=== PATIENT | female | born 1945 | race Caucasian/White ===

== ENCOUNTER 2021-11-03 03:17 | Inpatient (IN) | payer MEDICARE ==
[2021-11-08 03:38] VITALS: BMI 24.7
[2021-11-08] MEDS ORDERED: Guaifenesin DM 100-10/5 ML UDCUP PO PRN (04:03)
[2021-11-08] MEDS ORDERED: Senokot S 8.6-50 MG TAB PO PRN (04:05)
[2021-11-08] MEDS: Dextrose 5%-Lactated Ringers 1,000 ML IV SCH ×3 (07:17→12:50)
[2021-11-08] MEDS: Folic Acid 1 MG TAB PO SCH (10:33)
[2021-11-08] MEDS: Megestrol Acetate 40 MG TAB PO SCH (10:33)
[2021-11-08] MEDS: Aspirin 81 mg Enteric Coated Tablet PO SCH (10:33)
[2021-11-08] MEDS: Cepastat Lozenges 1 LOZ PO SCH ×3 (10:33→17:59)
[2021-11-08] MEDS: Lisinopril 5 MG TAB PO SCH (10:33)
[2021-11-08] MEDS: Metoclopramide 10 MG/10 ML UDCUP PO SCH ×4 (10:33→21:56)
[2021-11-08] MEDS: Enoxaparin Sodium 40 MG/0.4 ML SYRINGE SC SCH (10:34)
[2021-11-08] MEDS: Escitalopram Oxalate 10 mg Tablet PO SCH (10:34)
[2021-11-08] MEDS: Atenolol 25 MG TAB PO SCH (10:34)
[2021-11-08] MEDS: Pantoprazole 40 MG VIAL IVP SCH ×2 (10:34→21:55)
[2021-11-08] MEDS: Atorvastatin Calcium 20 MG TAB PO SCH (21:56)
[2021-11-08] MEDS: Temazepam 15 MG CAP PO SCH (21:56)
[2021-11-09] MEDS: Dextrose 5%-Lactated Ringers 1,000 ML IV SCH (00:42)
[2021-11-09 04:14] LABS: #Monocytes 0.6 10x3/uL (0.0-1.1); #Neutrophils 5.3 10x3/uL (1.5-8.4); %Basophils 0.3 % (0.0-2.0); %Eosinophils 0.6 % (0.0-6.0); %Lymphocytes 15.3 % (18.0-47.0); %Monocytes 8.5 % (0.0-10.0); %Neutrophils 74.9 % (40.0-75.0); Hemoglobin 12.8 g/dL (12.0-15.5); Mean Corpuscular Hemoglobin 28.9 pg (27.0-33.0); Mean Corpuscular Volume 85.1 fl (81.6-98.3); Mean Platelet Volume 10.6 fl (7.4-10.4); Platelet Count 145 10x3/uL (150-450); RBC Distribution Width 14.8 % (11.5-14.5); Red Blood Cell (RBC) Count 4.43 10x6/uL (3.90-5.03); White Blood Cell (WBC) Count 7.1 10x3/uL (3.5-10.5)
[2021-11-09 04:45] LABS: Anion Gap 14 mmol/L (10-20); BUN (Urea Nitrogen) 7 mg/dL (9.8-20.1); Calc. Creatinine Clearance 55 mL/min (70-130); Calcium 8.2 mg/dL (7.8-10.44); Carbon Dioxide 23 mmol/L (23-31); Chloride 106 mmol/L (98-107); Glucose 102 mg/dL (83-110); Magnesium 1.7 mg/dL (1.6-2.6); Potassium 3.3 mmol/L (3.5-5.1); Sodium 140 mmol/L (136-145)
[2021-11-09] MEDS ORDERED: Potassium Chloride 20 MEQ TAB PO SCH (07:45)
[2021-11-09] MEDS: Ondansetron PF 4 MG/2 ML Vial IVP PRN ×2 (07:56→16:42)
[2021-11-09] MEDS ORDERED: Pantoprazole 40 MG VIAL ONE (09:26)
[2021-11-09] MEDS: Cepastat Lozenges 1 LOZ PO SCH ×3 (09:34→16:42)
[2021-11-09] MEDS: Aspirin 81 mg Enteric Coated Tablet PO SCH (09:34)
[2021-11-09] MEDS: Enoxaparin Sodium 40 MG/0.4 ML SYRINGE SC SCH (09:34)
[2021-11-09] MEDS: Metoclopramide 10 MG/10 ML UDCUP PO SCH ×4 (09:34→20:28)
[2021-11-09] MEDS: Atenolol 25 MG TAB PO SCH (09:34)
[2021-11-09] MEDS: Megestrol Acetate 40 MG TAB PO SCH (09:35)
[2021-11-09] MEDS: Folic Acid 1 MG TAB PO SCH (09:35)
[2021-11-09] MEDS: Pantoprazole 40 MG VIAL IVP SCH ×2 (09:35→20:29)
[2021-11-09] MEDS: Magnesium Oxide 400 MG TAB PO SCH (09:35)
[2021-11-09] MEDS: Lisinopril 5 MG TAB PO SCH (09:35)
[2021-11-09] MEDS: Escitalopram Oxalate 10 mg Tablet PO SCH (09:35)
[2021-11-09] MEDS: Acetaminophen 325 MG TAB PO PRN (18:31)
[2021-11-09] MEDS: Temazepam 15 MG CAP PO SCH (20:28)
[2021-11-09] MEDS: Atorvastatin Calcium 20 MG TAB PO SCH (20:28)
[2021-11-10 05:28] LABS: Anion Gap 10 mmol/L (10-20); BUN (Urea Nitrogen) 9 mg/dL (9.8-20.1); Calc. Creatinine Clearance 55 mL/min (70-130); Calcium 7.9 mg/dL (7.8-10.44); Carbon Dioxide 26 mmol/L (23-31); Chloride 106 mmol/L (98-107); Glucose 91 mg/dL (83-110); Magnesium 1.6 mg/dL (1.6-2.6); Potassium 3.2 mmol/L (3.5-5.1); Sodium 139 mmol/L (136-145)
[2021-11-10] MEDS: Enoxaparin Sodium 40 MG/0.4 ML SYRINGE SC SCH (08:30)
[2021-11-10] MEDS: Escitalopram Oxalate 10 mg Tablet PO SCH (08:31)
[2021-11-10] MEDS: Lisinopril 5 MG TAB PO SCH (08:31)
[2021-11-10] MEDS: Folic Acid 1 MG TAB PO SCH (08:32)
[2021-11-10] MEDS: Megestrol Acetate 40 MG TAB PO SCH (08:33)
[2021-11-10] MEDS: Atenolol 25 MG TAB PO SCH (08:34)
[2021-11-10] MEDS: Aspirin 81 mg Enteric Coated Tablet PO SCH (08:34)
[2021-11-10] MEDS: Magnesium Oxide 400 MG TAB PO SCH (08:34)
[2021-11-10] MEDS: Cepastat Lozenges 1 LOZ PO SCH ×3 (08:35→18:57)
[2021-11-10] MEDS: Metoclopramide 10 MG/10 ML UDCUP PO SCH ×4 (08:36→23:34)
[2021-11-10] MEDS: Pantoprazole 40 MG VIAL IVP SCH ×2 (08:37→23:34)
[2021-11-10] MEDS: Dextrose 5%-Lactated Ringers 1,000 ML IV SCH (16:26)
[2021-11-10] MEDS: Atorvastatin Calcium 20 MG TAB PO SCH (23:34)
[2021-11-10] MEDS: Ondansetron PF 4 MG/2 ML Vial IVP PRN (23:34)
[2021-11-10] MEDS: Temazepam 15 MG CAP PO SCH (23:34)
[2021-11-11] MEDS ORDERED: hydrALAZINE 20 MG/ML VIAL SLOW IVP SCH (00:15)
[2021-11-11] MEDS: Dextrose 5%-Lactated Ringers 1,000 ML IV SCH (01:06)
[2021-11-11 05:08] LABS: Anion Gap 14 mmol/L (10-20); BUN (Urea Nitrogen) 11 mg/dL (9.8-20.1); Calc. Creatinine Clearance 55 mL/min (70-130); Calcium 8.3 mg/dL (7.8-10.44); Carbon Dioxide 22 mmol/L (23-31); Chloride 104 mmol/L (98-107); Glucose 111 mg/dL (83-110); Magnesium 1.6 mg/dL (1.6-2.6); Potassium 3.4 mmol/L (3.5-5.1); Sodium 137 mmol/L (136-145)
[2021-11-11] MEDS: Metoclopramide 10 MG/10 ML UDCUP PO SCH ×4 (10:50→21:14)
[2021-11-11] MEDS: Enoxaparin Sodium 40 MG/0.4 ML SYRINGE SC SCH (10:52)
[2021-11-11] MEDS: Escitalopram Oxalate 10 mg Tablet PO SCH (10:53)
[2021-11-11] MEDS: Megestrol Acetate 40 MG TAB PO SCH (10:53)
[2021-11-11] MEDS: Lisinopril 5 MG TAB PO SCH (10:53)
[2021-11-11] MEDS: Folic Acid 1 MG TAB PO SCH (10:53)
[2021-11-11] MEDS: Magnesium Oxide 400 MG TAB PO SCH (10:53)
[2021-11-11] MEDS: Aspirin 81 mg Enteric Coated Tablet PO SCH (10:53)
[2021-11-11] MEDS: Atenolol 25 MG TAB PO SCH (10:53)
[2021-11-11] MEDS: Cepastat Lozenges 1 LOZ PO SCH ×3 (10:54→18:02)
[2021-11-11] MEDS: Pantoprazole 40 MG VIAL IVP SCH ×2 (10:54→21:15)
[2021-11-11] MEDS: Ondansetron PF 4 MG/2 ML Vial IVP PRN ×2 (14:38→21:15)
[2021-11-11] MEDS: hydrALAZINE 20 MG/ML VIAL SLOW IVP PRN ×2 (16:20→21:15)
[2021-11-11] MEDS: Acetaminophen 325 MG TAB PO PRN ×2 (16:27→21:14)
[2021-11-11 18:09] LABS: SARS-CoV-2 PCR by NAA Not Detected (NotDetected)
[2021-11-11] MEDS: Atorvastatin Calcium 20 MG TAB PO SCH (21:15)
[2021-11-11] MEDS: Temazepam 15 MG CAP PO SCH (21:15)
[2021-11-12] MEDS ORDERED: Chloraseptic Spray 180 ml Bottle PO PRN (09:06)
[2021-11-12] MEDS: Pantoprazole 40 MG VIAL IVP SCH ×2 (09:35→21:09)
[2021-11-12] MEDS: Megestrol Acetate 40 MG TAB PO SCH (09:35)
[2021-11-12] MEDS: Aspirin 81 mg Enteric Coated Tablet PO SCH (09:35)
[2021-11-12] MEDS: Metoclopramide 10 MG/10 ML UDCUP PO SCH ×4 (09:35→21:09)
[2021-11-12] MEDS: Lisinopril 5 MG TAB PO SCH (09:35)
[2021-11-12] MEDS: Atenolol 25 MG TAB PO SCH (09:35)
[2021-11-12] MEDS: Escitalopram Oxalate 10 mg Tablet PO SCH (09:36)
[2021-11-12] MEDS: Magnesium Oxide 400 MG TAB PO SCH (09:36)
[2021-11-12] MEDS: Enoxaparin Sodium 40 MG/0.4 ML SYRINGE SC SCH (09:36)
[2021-11-12] MEDS: Folic Acid 1 MG TAB PO SCH (09:36)
[2021-11-12] MEDS: Cepastat Lozenges 1 LOZ PO SCH ×3 (09:36→18:06)
[2021-11-12] MEDS: Dextrose 5%-Lactated Ringers 1,000 ML IV SCH ×2 (09:37→09:59)
[2021-11-12] MEDS: Aluminum & Magnesium Hydroxide 60 ML, diphenhydrAMINE 150 MG, Lidocaine 2% Viscous Solu... SSW SCH ×3 (12:53→21:08)
[2021-11-12] MEDS: Atorvastatin Calcium 20 MG TAB PO SCH (21:09)
[2021-11-12] MEDS: Temazepam 15 MG CAP PO SCH (21:09)
[2021-11-13 05:53] LABS: Anion Gap 10 mmol/L (10-20); BUN (Urea Nitrogen) 14 mg/dL (9.8-20.1); Calc. Creatinine Clearance 57 mL/min (70-130); Carbon Dioxide 27 mmol/L (23-31); Chloride 106 mmol/L (98-107); Glucose 88 mg/dL (83-110); Magnesium 1.7 mg/dL (1.6-2.6); Potassium 3.1 mmol/L (3.5-5.1); Sodium 140 mmol/L (136-145)
[2021-11-13 06:07] LABS: #Basophils 0.1 10x3/uL (0.0-0.2); #Eosinphils 0.2 10x3/uL (0.0-0.5); #Monocytes 0.6 10x3/uL (0.0-1.1); #Neutrophils 3.8 10x3/uL (1.5-8.4); %Basophils 0.9 % (0.0-2.0); %Eosinophils 2.8 % (0.0-6.0); %Lymphocytes 19.4 % (18.0-47.0); %Monocytes 10.6 % (0.0-10.0); %Neutrophils 65.8 % (40.0-75.0); Hemoglobin 11.1 g/dL (12.0-15.5); Mean Corpuscular HGB CONC 32.5 g/dL (32.0-36.0); Mean Corpuscular Hemoglobin 29.1 pg (27.0-33.0); Mean Corpuscular Volume 89.5 fl (81.6-98.3); Mean Platelet Volume 10.2 fl (7.4-10.4); Platelet Count 135 10x3/uL (150-450); RBC Distribution Width 15.3 % (11.5-14.5); Red Blood Cell (RBC) Count 3.82 10x6/uL (3.90-5.03); White Blood Cell (WBC) Count 5.8 10x3/uL (3.5-10.5)
[2021-11-13] MEDS ORDERED: Magnesium 2 GM/50 ML 2 GM in Premix Bag 1 BAG IVPB SCH ×2 (07:30→13:45)
[2021-11-13] MEDS ORDERED: Potassium Chloride 20 MEQ TAB PO SCH ×2 (07:30→13:45)
[2021-11-13] MEDS: Lisinopril 5 MG TAB PO SCH (10:02)
[2021-11-13] MEDS: Escitalopram Oxalate 10 mg Tablet PO SCH (10:02)
[2021-11-13] MEDS: Aluminum & Magnesium Hydroxide 60 ML, diphenhydrAMINE 150 MG, Lidocaine 2% Viscous Solu... SSW SCH ×4 (10:02→22:13)
[2021-11-13] MEDS: Megestrol Acetate 40 MG TAB PO SCH (10:02)
[2021-11-13] MEDS: Aspirin 81 mg Enteric Coated Tablet PO SCH (10:02)
[2021-11-13] MEDS: Enoxaparin Sodium 40 MG/0.4 ML SYRINGE SC SCH (10:02)
[2021-11-13] MEDS: Cepastat Lozenges 1 LOZ PO SCH ×3 (10:03→17:52)
[2021-11-13] MEDS: Magnesium Oxide 400 MG TAB PO SCH (10:03)
[2021-11-13] MEDS: Atenolol 25 MG TAB PO SCH (10:03)
[2021-11-13] MEDS: Folic Acid 1 MG TAB PO SCH (10:03)
[2021-11-13] MEDS: Pantoprazole 40 MG VIAL IVP SCH ×2 (10:03→22:13)
[2021-11-13] MEDS: Metoclopramide 10 MG/10 ML UDCUP PO SCH ×4 (10:03→22:13)
[2021-11-13] MEDS: Dextrose 5%-Lactated Ringers 1,000 ML IV SCH (17:52)
[2021-11-13] MEDS: Atorvastatin Calcium 20 MG TAB PO SCH (22:14)
[2021-11-13] MEDS: Temazepam 15 MG CAP PO SCH (22:15)
[2021-11-14 06:54] LABS: #Basophils 0.1 10x3/uL (0.0-0.2); #Eosinphils 0.3 10x3/uL (0.0-0.5); #Monocytes 0.5 10x3/uL (0.0-1.1); #Neutrophils 3.2 10x3/uL (1.5-8.4); %Eosinophils 4.9 % (0.0-6.0); %Lymphocytes 21.9 % (18.0-47.0); %Monocytes 9.9 % (0.0-10.0); %Neutrophils 61.5 % (40.0-75.0); Hemoglobin 10.6 g/dL (12.0-15.5); Mean Corpuscular HGB CONC 31.8 g/dL (32.0-36.0); Mean Corpuscular Hemoglobin 28.6 pg (27.0-33.0); Mean Corpuscular Volume 89.8 fl (81.6-98.3); Mean Platelet Volume 10.2 fl (7.4-10.4); Platelet Count 134 10x3/uL (150-450); Red Blood Cell (RBC) Count 3.71 10x6/uL (3.90-5.03); White Blood Cell (WBC) Count 5.2 10x3/uL (3.5-10.5)
[2021-11-14] MEDS: Dextrose 5%-Lactated Ringers 1,000 ML IV SCH (07:00)
[2021-11-14 07:26] LABS: Anion Gap 12 mmol/L (10-20); BUN (Urea Nitrogen) 13 mg/dL (9.8-20.1); Calc. Creatinine Clearance 53 mL/min (70-130); Calcium 8.1 mg/dL (7.8-10.44); Carbon Dioxide 25 mmol/L (23-31); Chloride 107 mmol/L (98-107); Glucose 79 mg/dL (83-110); Magnesium 2.1 mg/dL (1.6-2.6); Sodium 141 mmol/L (136-145)
[2021-11-14] MEDS: Potassium Chloride 20 MEQ in Premix Bag 1 BAG IVPB SCH ×2 (08:16→11:56)
[2021-11-14] MEDS: Aluminum & Magnesium Hydroxide 60 ML, diphenhydrAMINE 150 MG, Lidocaine 2% Viscous Solu... SSW SCH ×4 (08:21→21:03)
[2021-11-14] MEDS: Cepastat Lozenges 1 LOZ PO SCH ×3 (08:22→17:15)
[2021-11-14] MEDS: Metoclopramide 10 MG/10 ML UDCUP PO SCH ×4 (08:22→21:04)
[2021-11-14] MEDS: Pantoprazole 40 MG VIAL IVP SCH ×2 (08:23→21:04)
[2021-11-14] MEDS: Enoxaparin Sodium 40 MG/0.4 ML SYRINGE SC SCH (08:26)
[2021-11-14] MEDS: Folic Acid 1 MG TAB PO SCH (10:06)
[2021-11-14] MEDS: Magnesium Oxide 400 MG TAB PO SCH (10:06)
[2021-11-14] MEDS: Atenolol 25 MG TAB PO SCH (10:06)
[2021-11-14] MEDS: Lisinopril 5 MG TAB PO SCH (10:07)
[2021-11-14] MEDS: Escitalopram Oxalate 10 mg Tablet PO SCH (10:07)
[2021-11-14] MEDS: Aspirin 81 mg Enteric Coated Tablet PO SCH (10:10)
[2021-11-14] MEDS: Megestrol Acetate 40 MG TAB PO SCH (10:12)
[2021-11-14] MEDS: Atorvastatin Calcium 20 MG TAB PO SCH (21:04)
[2021-11-14] MEDS: Temazepam 15 MG CAP PO SCH (21:04)
[2021-11-15 05:16] LABS: Anion Gap 8 mmol/L (10-20); BUN (Urea Nitrogen) 10 mg/dL (9.8-20.1); Calc. Creatinine Clearance 62 mL/min (70-130); Carbon Dioxide 26 mmol/L (23-31); Chloride 109 mmol/L (98-107); Glucose 89 mg/dL (83-110); Potassium 3.4 mmol/L (3.5-5.1); Sodium 140 mmol/L (136-145)
[2021-11-15] MEDS: Metoclopramide 10 MG/10 ML UDCUP PO SCH ×5 (10:47→21:16)
[2021-11-15] MEDS: Lisinopril 5 MG TAB PO SCH (10:47)
[2021-11-15] MEDS: Folic Acid 1 MG TAB PO SCH (10:47)
[2021-11-15] MEDS: Atenolol 25 MG TAB PO SCH (10:48)
[2021-11-15] MEDS: Escitalopram Oxalate 10 mg Tablet PO SCH (10:48)
[2021-11-15] MEDS: Magnesium Oxide 400 MG TAB PO SCH (10:48)
[2021-11-15] MEDS: Megestrol Acetate 40 MG TAB PO SCH (10:48)
[2021-11-15] MEDS: Enoxaparin Sodium 40 MG/0.4 ML SYRINGE SC SCH (10:49)
[2021-11-15] MEDS: Aluminum & Magnesium Hydroxide 60 ML, diphenhydrAMINE 150 MG, Lidocaine 2% Viscous Solu... SSW SCH ×4 (10:50→21:17)
[2021-11-15] MEDS: Aspirin 81 mg Enteric Coated Tablet PO SCH (10:50)
[2021-11-15] MEDS: Cepastat Lozenges 1 LOZ PO SCH ×4 (10:52→17:00)
[2021-11-15] MEDS: Pantoprazole 40 MG VIAL IVP SCH (10:53)
[2021-11-15] MEDS ORDERED: Pantoprazole 40 MG VIAL ONE (20:43)
[2021-11-15] MEDS: Atorvastatin Calcium 20 MG TAB PO SCH (21:17)
[2021-11-15] MEDS: Temazepam 15 MG CAP PO SCH (21:17)
[2021-11-16] MEDS: Pantoprazole 40 MG VIAL IVP SCH ×3 (02:21→23:12)
[2021-11-16 05:16] LABS: Anion Gap 11 mmol/L (10-20); BUN (Urea Nitrogen) 14 mg/dL (9.8-20.1); Calc. Creatinine Clearance 59 mL/min (70-130); Calcium 7.9 mg/dL (7.8-10.44); Carbon Dioxide 22 mmol/L (23-31); Chloride 109 mmol/L (98-107); Glucose 95 mg/dL (83-110); Potassium 3.3 mmol/L (3.5-5.1); Sodium 139 mmol/L (136-145)
[2021-11-16] MEDS: Aluminum & Magnesium Hydroxide 60 ML, diphenhydrAMINE 150 MG, Lidocaine 2% Viscous Solu... SSW SCH ×4 (10:05→23:14)
[2021-11-16] MEDS: Metoclopramide 10 MG/10 ML UDCUP PO SCH ×4 (10:05→23:12)
[2021-11-16] MEDS: Cepastat Lozenges 1 LOZ PO SCH ×3 (10:05→17:06)
[2021-11-16] MEDS: Atenolol 25 MG TAB PO SCH (10:06)
[2021-11-16] MEDS: Enoxaparin Sodium 40 MG/0.4 ML SYRINGE SC SCH (10:06)
[2021-11-16] MEDS: Aspirin 81 mg Enteric Coated Tablet PO SCH (10:06)
[2021-11-16] MEDS: Folic Acid 1 MG TAB PO SCH (10:06)
[2021-11-16] MEDS: Escitalopram Oxalate 10 mg Tablet PO SCH (10:06)
[2021-11-16] MEDS: Lisinopril 5 MG TAB PO SCH (10:06)
[2021-11-16] MEDS: Magnesium Oxide 400 MG TAB PO SCH (10:08)
[2021-11-16] MEDS: Megestrol Acetate 40 MG TAB PO SCH (10:08)
[2021-11-16] MEDS: Atorvastatin Calcium 20 MG TAB PO SCH (23:13)
[2021-11-16] MEDS: Temazepam 15 MG CAP PO SCH (23:13)
[2021-11-17] MEDS: Aspirin 81 mg Enteric Coated Tablet PO SCH (08:16)
[2021-11-17] MEDS: Megestrol Acetate 40 MG TAB PO SCH (08:16)
[2021-11-17] MEDS: Lisinopril 5 MG TAB PO SCH (08:16)
[2021-11-17] MEDS: Atenolol 25 MG TAB PO SCH (08:17)
[2021-11-17] MEDS: Enoxaparin Sodium 40 MG/0.4 ML SYRINGE SC SCH (08:17)
[2021-11-17] MEDS: Magnesium Oxide 400 MG TAB PO SCH (08:17)
[2021-11-17] MEDS: Folic Acid 1 MG TAB PO SCH (08:17)
[2021-11-17] MEDS: Escitalopram Oxalate 10 mg Tablet PO SCH (08:17)
[2021-11-17] MEDS: Metoclopramide 10 MG/10 ML UDCUP PO SCH ×4 (08:18→20:44)
[2021-11-17] MEDS: Aluminum & Magnesium Hydroxide 60 ML, diphenhydrAMINE 150 MG, Lidocaine 2% Viscous Solu... SSW SCH ×4 (08:18→20:45)
[2021-11-17] MEDS: Cepastat Lozenges 1 LOZ PO SCH ×3 (08:18→18:10)
[2021-11-17] MEDS: Pantoprazole 40 MG VIAL IVP SCH ×2 (08:19→20:45)
[2021-11-17] MEDS: Temazepam 15 MG CAP PO SCH (20:44)
[2021-11-17] MEDS: Atorvastatin Calcium 20 MG TAB PO SCH (20:44)
[2021-11-18] MEDS: Pantoprazole 40 MG VIAL IVP SCH (08:46)
[2021-11-18] MEDS: Metoclopramide 10 MG/10 ML UDCUP PO SCH ×2 (08:46→12:47)
[2021-11-18] MEDS: Enoxaparin Sodium 40 MG/0.4 ML SYRINGE SC SCH (08:46)
[2021-11-18] MEDS: Lisinopril 5 MG TAB PO SCH (08:47)
[2021-11-18] MEDS: Aspirin 81 mg Enteric Coated Tablet PO SCH (08:47)
[2021-11-18] MEDS: Atenolol 25 MG TAB PO SCH (08:47)
[2021-11-18] MEDS: Megestrol Acetate 40 MG TAB PO SCH (08:47)
[2021-11-18] MEDS: Escitalopram Oxalate 10 mg Tablet PO SCH (08:47)
[2021-11-18] MEDS: Folic Acid 1 MG TAB PO SCH (08:47)
[2021-11-18] MEDS: Magnesium Oxide 400 MG TAB PO SCH (08:48)
[2021-11-18] MEDS: Cepastat Lozenges 1 LOZ PO SCH ×2 (08:48→12:48)
[2021-11-18] MEDS: Aluminum & Magnesium Hydroxide 60 ML, diphenhydrAMINE 150 MG, Lidocaine 2% Viscous Solu... SSW SCH ×2 (08:49→12:48)
[2021-11-18 12:03] VITALS: TEMP 98.3
[2021-11-18 15:34] LABS: #Eosinphils 0.2 10x3/uL (0.0-0.5); #Monocytes 0.4 10x3/uL (0.0-1.1); #Neutrophils 3.2 10x3/uL (1.5-8.4); %Basophils 0.8 % (0.0-2.0); %Lymphocytes 18.9 % (18.0-47.0); %Monocytes 7.5 % (0.0-10.0); %Neutrophils 67.2 % (40.0-75.0); Hemoglobin 10.5 g/dL (12.0-15.5); Mean Corpuscular HGB CONC 32.3 g/dL (32.0-36.0); Mean Corpuscular Hemoglobin 28.8 pg (27.0-33.0); Mean Platelet Volume 9.7 fl (7.4-10.4); Platelet Count 196 10x3/uL (150-450); RBC Distribution Width 15.1 % (11.5-14.5); Red Blood Cell (RBC) Count 3.65 10x6/uL (3.90-5.03); White Blood Cell (WBC) Count 4.8 10x3/uL (3.5-10.5)
[2021-11-18 15:46] LABS: Anion Gap 10 mmol/L (10-20); BUN (Urea Nitrogen) 13 mg/dL (9.8-20.1); Calc. Creatinine Clearance 53 mL/min (70-130); Calcium 8.3 mg/dL (7.8-10.44); Carbon Dioxide 23 mmol/L (23-31); Chloride 109 mmol/L (98-107); Glucose 108 mg/dL (83-110); Potassium 3.2 mmol/L (3.5-5.1); Sodium 139 mmol/L (136-145)
[2021-11-18 15:56] VITALS: BP 120/56
[2021-11-18] MEDS ORDERED: Mirtazapine 15 MG TAB PO SCH (21:00)
== END 2021-11-18 16:45 | disposition home or self-care (01) | DRG 56 ==
LOC: UNDOADMIN 03:17 → CSHTELE 03:17 → UNDOADMIN 22:36 → CSHTELE 22:36 → CSHERHOLD 11-13 13:18 → CSHTELE 11-13 13:18 → CSHERHOLD 11-13 13:32 → CSHTELE 11-13 13:32 → UNDODISIN 11-18 16:45
PROVIDERS: ADMIT Student in an Organized Health Care Education/Training Program; ATTEND Family Medicine
PROC: 0D738ZZ Dilation of Lower Esophagus, Via Natural or Artificial Opening Endoscopic (ICD-10-PCS; principal; 2021-11-05)
PROC: 0DB78ZX Excision of Stomach, Pylorus, Via Natural or Artificial Opening Endoscopic, Diagnostic (ICD-10-PCS; 2021-11-05)
PROC: 0DH67UZ Insertion of Feeding Device into Stomach, Via Natural or Artificial Opening (ICD-10-PCS; 2021-11-10)
DX: G30.9 Alzheimer's disease, unspecified (principal); E43 Unspecified severe protein-calorie malnutrition; N17.9 Acute kidney failure, unspecified; K22.2 Esophageal obstruction; K44.9 Diaphragmatic hernia without obstruction or gangrene; F41.9 Anxiety disorder, unspecified; I10 Essential (primary) hypertension; E78.5 Hyperlipidemia, unspecified; E86.0 Dehydration; E78.2 Mixed hyperlipidemia; F02.80 Dementia in other diseases classified elsewhere, unspecified severity, without behavioral disturbance, psychotic disturbance, mood disturbance, and anxiety; Z66 Do not resuscitate; K94.29 Other complications of gastrostomy; Y83.8 Other surgical procedures as the cause of abnormal reaction of the patient, or of later complication, without mention of misadventure at the time of the procedure; Z90.710 Acquired absence of both cervix and uterus; Z20.822 Contact with and (suspected) exposure to COVID-19; Z68.24 Body mass index [BMI] 24.0-24.9, adult
CPT/HCPCS: 36415; 36416; 70450; 70553; 71045; 74018; 74177; 74220; 80048; 80053; 82607; 82746; 83690; 83735; 84443; 85025; 88305; 88312; 93005; C9113; J0360; J1650; J2405; J2704; J3475; J3480; Q0163; S0179; U0002; U0003; U0005

== ENCOUNTER 2021-11-03 15:34 | Inpatient (IN) | payer MEDICARE ==
[2021-11-03 16:36] LABS: #Eosinphils 0.2 10x3/uL (0.0-0.5); #Monocytes 0.5 10x3/uL (0.0-1.1); %Basophils 0.7 % (0.0-2.0); %Eosinophils 3.3 % (0.0-6.0); %Lymphocytes 12.4 % (18.0-47.0); %Monocytes 9.4 % (0.0-10.0); %Neutrophils 73.8 % (40.0-75.0); Mean Corpuscular HGB CONC 33.3 g/dL (32.0-36.0); Mean Corpuscular Hemoglobin 29.4 pg (27.0-33.0); Mean Corpuscular Volume 88.1 fl (81.6-98.3); Platelet Count 159 10x3/uL (150-450); RBC Distribution Width 14.6 % (11.5-14.5); Red Blood Cell (RBC) Count 5.11 10x6/uL (3.90-5.03); White Blood Cell (WBC) Count 5.4 10x3/uL (3.5-10.5)
[2021-11-03 17:16] LABS: ALT (SGPT) 14 U/L (8-55); AST (SGOT) 28 U/L (5-34); Albumin 3.9 g/dL (3.4-4.8); Alkaline Phosphatase 53 U/L (40-110); Anion Gap 18 mmol/L (10-20); BUN (Urea Nitrogen) 32 mg/dL (9.8-20.1); Bilirubin, Total 0.8 mg/dL (0.2-1.2); Calc. Creatinine Clearance 0 mL/min (70-130); Calcium 9.7 mg/dL (7.8-10.44); Carbon Dioxide 25 mmol/L (23-31); Chloride 99 mmol/L (98-107); Glucose 90 mg/dL (83-110); Lipase 16 U/L (8-78); Potassium 3.7 mmol/L (3.5-5.1); Protein, Total 6.9 g/dL (5.8-8.1); Sodium 138 mmol/L (136-145)
[2021-11-03] MEDS ORDERED: Senokot S 8.6-50 MG TAB PO PRN (20:59)
[2021-11-03] MEDS ORDERED: Acetaminophen 325 MG TAB PO PRN (20:59)
[2021-11-03] MEDS ORDERED: Guaifenesin DM 100-10/5 ML UDCUP PO PRN (20:59)
[2021-11-03] MEDS ORDERED: Dextrose 5%-Lactated Ringers 1,000 ML IV SCH (21:15)
[2021-11-03] MEDS ORDERED: Pantoprazole 40 MG VIAL IVP SCH (21:45)
[2021-11-03] MEDS ORDERED: D5 LR 500 ML IV SCH (23:00)
[2021-11-03] MEDS: Dextrose 5%-Lactated Ringers 1,000 ML IV SCH (23:18)
[2021-11-04 01:07] VITALS: BMI 24.7
[2021-11-04 07:18] LABS: #Eosinphils 0.2 10x3/uL (0.0-0.5); #Monocytes 0.6 10x3/uL (0.0-1.1); #Neutrophils 3.9 10x3/uL (1.5-8.4); %Basophils 0.5 % (0.0-2.0); %Eosinophils 2.7 % (0.0-6.0); %Lymphocytes 15.2 % (18.0-47.0); %Monocytes 10.7 % (0.0-10.0); %Neutrophils 70.5 % (40.0-75.0); Hemoglobin 13.1 g/dL (12.0-15.5); Mean Corpuscular HGB CONC 33.5 g/dL (32.0-36.0); Mean Corpuscular Volume 86.5 fl (81.6-98.3); Mean Platelet Volume 10.9 fl (7.4-10.4); Platelet Count 139 10x3/uL (150-450); RBC Distribution Width 14.5 % (11.5-14.5); Red Blood Cell (RBC) Count 4.52 10x6/uL (3.90-5.03); White Blood Cell (WBC) Count 5.6 10x3/uL (3.5-10.5)
[2021-11-04 07:30] LABS: Anion Gap 13 mmol/L (10-20); BUN (Urea Nitrogen) 23 mg/dL (9.8-20.1); Calc. Creatinine Clearance 47 mL/min (70-130); Calcium 8.6 mg/dL (7.8-10.44); Carbon Dioxide 26 mmol/L (23-31); Chloride 105 mmol/L (98-107); Glucose 109 mg/dL (83-110); Magnesium 1.6 mg/dL (1.6-2.6); Potassium 3.1 mmol/L (3.5-5.1); Sodium 141 mmol/L (136-145)
[2021-11-04] MEDS ORDERED: Potassium Chloride 20 MEQ TAB PO SCH (09:15)
[2021-11-04] MEDS: Dextrose 5%-Lactated Ringers 1,000 ML IV SCH ×2 (09:34→23:50)
[2021-11-04] MEDS: Aspirin 81 mg Enteric Coated Tablet PO SCH (09:36)
[2021-11-04] MEDS: Enoxaparin Sodium 40 MG/0.4 ML SYRINGE SC SCH (09:36)
[2021-11-04] MEDS: Atenolol 25 MG TAB PO SCH (09:36)
[2021-11-04] MEDS: Escitalopram Oxalate 10 mg Tablet PO SCH (09:36)
[2021-11-04] MEDS: Pantoprazole 40 MG VIAL IVP SCH ×2 (09:36→20:58)
[2021-11-04 13:18] LABS: SARS-CoV-2 NAA Rapid Test Not Detected (NotDetected)
[2021-11-04] MEDS: Atorvastatin Calcium 20 MG TAB PO SCH (20:58)
[2021-11-05 04:43] LABS: #Eosinphils 0.2 10x3/uL (0.0-0.5); #Monocytes 0.5 10x3/uL (0.0-1.1); #Neutrophils 3.9 10x3/uL (1.5-8.4); %Basophils 0.6 % (0.0-2.0); %Eosinophils 3.2 % (0.0-6.0); %Lymphocytes 14.5 % (18.0-47.0); %Monocytes 9.3 % (0.0-10.0); %Neutrophils 71.8 % (40.0-75.0); Hemoglobin 12.5 g/dL (12.0-15.5); Mean Corpuscular HGB CONC 33.6 g/dL (32.0-36.0); Mean Corpuscular Hemoglobin 29.1 pg (27.0-33.0); Mean Corpuscular Volume 86.7 fl (81.6-98.3); RBC Distribution Width 14.4 % (11.5-14.5); Red Blood Cell (RBC) Count 4.29 10x6/uL (3.90-5.03); White Blood Cell (WBC) Count 5.4 10x3/uL (3.5-10.5)
[2021-11-05 04:47] LABS: Platelet Count 129 10x3/uL (150-450)
[2021-11-05 05:12] LABS: Anion Gap 12 mmol/L (10-20); BUN (Urea Nitrogen) 13 mg/dL (9.8-20.1); Calc. Creatinine Clearance 60 mL/min (70-130); Calcium 8.5 mg/dL (7.8-10.44); Carbon Dioxide 26 mmol/L (23-31); Chloride 104 mmol/L (98-107); Glucose 114 mg/dL (83-110); Potassium 3.2 mmol/L (3.5-5.1); Sodium 139 mmol/L (136-145)
[2021-11-05] MEDS: Dextrose 5%-Lactated Ringers 1,000 ML IV SCH ×2 (06:30→15:30)
[2021-11-05] MEDS: Atenolol 25 MG TAB PO SCH (08:56)
[2021-11-05] MEDS ORDERED: Potassium Chloride 20 MEQ in Premix Bag 1 BAG IVPB SCH (09:00)
[2021-11-05] MEDS: Pantoprazole 40 MG VIAL IVP SCH ×2 (09:16→20:29)
[2021-11-05] MEDS: Folic Acid 1 MG TAB PO SCH (09:17)
[2021-11-05] MEDS: Enoxaparin Sodium 40 MG/0.4 ML SYRINGE SC SCH (09:17)
[2021-11-05] MEDS: Aspirin 81 mg Enteric Coated Tablet PO SCH (09:17)
[2021-11-05] MEDS: Escitalopram Oxalate 10 mg Tablet PO SCH (09:17)
[2021-11-05] MEDS ORDERED: PROPOFOL 20 ML ONE (11:47)
[2021-11-05] MEDS ORDERED: ePHEDrine Sulfate 50 MG/10 ML VIAL ONE (12:14)
[2021-11-05] MEDS ORDERED: Potassium Chloride 20 MEQ TAB PO SCH ×2 (18:00→21:00)
[2021-11-05] MEDS: Ondansetron PF 4 MG/2 ML Vial IVP PRN (20:29)
[2021-11-05] MEDS: Atorvastatin Calcium 20 MG TAB PO SCH (20:30)
[2021-11-06] MEDS: Dextrose 5%-Lactated Ringers 1,000 ML IV SCH ×3 (01:57→22:19)
[2021-11-06 04:33] LABS: #Eosinphils 0.2 10x3/uL (0.0-0.5); #Monocytes 0.5 10x3/uL (0.0-1.1); #Neutrophils 3.5 10x3/uL (1.5-8.4); %Basophils 0.6 % (0.0-2.0); %Eosinophils 3.8 % (0.0-6.0); %Lymphocytes 17.4 % (18.0-47.0); %Monocytes 9.1 % (0.0-10.0); %Neutrophils 68.5 % (40.0-75.0); Hemoglobin 12.9 g/dL (12.0-15.5); Mean Corpuscular HGB CONC 32.9 g/dL (32.0-36.0); Mean Corpuscular Hemoglobin 28.7 pg (27.0-33.0); Mean Corpuscular Volume 87.3 fl (81.6-98.3); Platelet Count 126 10x3/uL (150-450); RBC Distribution Width 14.6 % (11.5-14.5); Red Blood Cell (RBC) Count 4.49 10x6/uL (3.90-5.03); White Blood Cell (WBC) Count 5.1 10x3/uL (3.5-10.5)
[2021-11-06 04:37] LABS: Anion Gap 9 mmol/L (10-20); BUN (Urea Nitrogen) 9 mg/dL (9.8-20.1); Calc. Creatinine Clearance 57 mL/min (70-130); Calcium 8.5 mg/dL (7.8-10.44); Carbon Dioxide 28 mmol/L (23-31); Chloride 103 mmol/L (98-107); Glucose 105 mg/dL (83-110); Magnesium 1.2 mg/dL (1.6-2.6); Potassium 3.2 mmol/L (3.5-5.1); Sodium 137 mmol/L (136-145)
[2021-11-06] MEDS ORDERED: Potassium Chloride 20 MEQ TAB PO SCH (08:15)
[2021-11-06] MEDS: Pantoprazole 40 MG VIAL IVP SCH ×2 (11:14→22:15)
[2021-11-06] MEDS: Folic Acid 1 MG TAB PO SCH (11:14)
[2021-11-06] MEDS: Escitalopram Oxalate 10 mg Tablet PO SCH (11:14)
[2021-11-06] MEDS: Aspirin 81 mg Enteric Coated Tablet PO SCH (11:14)
[2021-11-06] MEDS: Enoxaparin Sodium 40 MG/0.4 ML SYRINGE SC SCH (11:14)
[2021-11-06] MEDS: Magnesium 2 GM/50 ML 2 GM in Premix Bag 1 BAG IVPB SCH ×2 (11:15→12:07)
[2021-11-06] MEDS: Atenolol 25 MG TAB PO SCH (11:15)
[2021-11-06] MEDS ORDERED: Magnesium 2 GM/50 ML 2 GM in Premix Bag 1 BAG IVPB SCH (12:00)
[2021-11-06] MEDS ORDERED: Megestrol Acetate 40 MG TAB PO SCH (14:41)
[2021-11-06] MEDS: Atorvastatin Calcium 20 MG TAB PO SCH (22:15)
[2021-11-07 07:24] LABS: #Eosinphils 0.1 10x3/uL (0.0-0.5); #Monocytes 0.4 10x3/uL (0.0-1.1); #Neutrophils 4.9 10x3/uL (1.5-8.4); %Basophils 0.3 % (0.0-2.0); %Eosinophils 1.8 % (0.0-6.0); %Lymphocytes 8.7 % (18.0-47.0); %Monocytes 7.3 % (0.0-10.0); %Neutrophils 81.4 % (40.0-75.0); Hemoglobin 12.5 g/dL (12.0-15.5); Mean Corpuscular HGB CONC 33.5 g/dL (32.0-36.0); Mean Corpuscular Hemoglobin 28.9 pg (27.0-33.0); Mean Corpuscular Volume 86.3 fl (81.6-98.3); Platelet Count 120 10x3/uL (150-450); RBC Distribution Width 14.6 % (11.5-14.5); Red Blood Cell (RBC) Count 4.32 10x6/uL (3.90-5.03)
[2021-11-07 07:47] LABS: Anion Gap 10 mmol/L (10-20); BUN (Urea Nitrogen) 5 mg/dL (9.8-20.1); Calc. Creatinine Clearance 60 mL/min (70-130); Calcium 8.2 mg/dL (7.8-10.44); Carbon Dioxide 24 mmol/L (23-31); Chloride 108 mmol/L (98-107); Glucose 115 mg/dL (83-110); Magnesium 1.5 mg/dL (1.6-2.6); Potassium 3.4 mmol/L (3.5-5.1); Sodium 139 mmol/L (136-145)
[2021-11-07] MEDS ORDERED: Megestrol Acetate 40 MG TAB PO SCH (09:00)
[2021-11-07] MEDS ORDERED: Lisinopril 5 MG TAB PO SCH (09:00)
[2021-11-07] MEDS: Cepastat Lozenges 1 LOZ PO SCH ×3 (11:53→16:59)
[2021-11-07] MEDS: Aspirin 81 mg Enteric Coated Tablet PO SCH (12:14)
[2021-11-07] MEDS: Atenolol 25 MG TAB PO SCH (12:14)
[2021-11-07] MEDS: Pantoprazole 40 MG VIAL IVP SCH ×2 (12:15→20:45)
[2021-11-07] MEDS: Folic Acid 1 MG TAB PO SCH (12:15)
[2021-11-07] MEDS: Enoxaparin Sodium 40 MG/0.4 ML SYRINGE SC SCH (12:15)
[2021-11-07] MEDS: Escitalopram Oxalate 10 mg Tablet PO SCH (12:15)
[2021-11-07] MEDS ORDERED: Magnesium 2 GM/50 ML 2 GM in Premix Bag 1 BAG IVPB SCH (15:00)
[2021-11-07] MEDS ORDERED: Potassium Chloride 20 MEQ in Premix Bag 1 BAG IVPB SCH (15:00)
[2021-11-07] MEDS: Dextrose 5%-Lactated Ringers 1,000 ML IV SCH ×2 (16:42)
[2021-11-07] MEDS: Ondansetron PF 4 MG/2 ML Vial IVP PRN (16:43)
[2021-11-07] MEDS: Atorvastatin Calcium 20 MG TAB PO SCH (20:44)
[2021-11-07] MEDS ORDERED: Metoclopramide 10 MG/10 ML UDCUP PO SCH (21:00)
[2021-11-07 21:36] VITALS: BP 162/75; TEMP 97.9
== END 2021-11-07 20:30 | disposition home or self-care (01) | DRG 392 ==
LOC: CSHERS 15:34 → CSHERHOLD 22:36 → CSHTELE 11-04 02:48
PROVIDERS: ADMIT Student in an Organized Health Care Education/Training Program; ATTEND Family Medicine
PROC: 0D748ZZ Dilation of Esophagogastric Junction, Via Natural or Artificial Opening Endoscopic (ICD-10-PCS; principal; 2021-11-05)
PROC: 0DB68ZX Excision of Stomach, Via Natural or Artificial Opening Endoscopic, Diagnostic (ICD-10-PCS; 2021-11-05)
DX: K22.2 Esophageal obstruction (principal); N17.9 Acute kidney failure, unspecified; R13.19 Other dysphagia; Z20.822 Contact with and (suspected) exposure to COVID-19; E86.0 Dehydration; R63.4 Abnormal weight loss; G30.9 Alzheimer's disease, unspecified; R94.31 Abnormal electrocardiogram [ECG] [EKG]; F02.80 Dementia in other diseases classified elsewhere, unspecified severity, without behavioral disturbance, psychotic disturbance, mood disturbance, and anxiety; K44.9 Diaphragmatic hernia without obstruction or gangrene; R63.0 Anorexia; E78.2 Mixed hyperlipidemia; F41.9 Anxiety disorder, unspecified; I10 Essential (primary) hypertension; Z68.24 Body mass index [BMI] 24.0-24.9, adult; Z79.82 Long term (current) use of aspirin; Z79.899 Other long term (current) drug therapy; Z90.710 Acquired absence of both cervix and uterus; Z85.820 Personal history of malignant melanoma of skin; Z98.890 Other specified postprocedural states
CPT/HCPCS: 36415; 70450; 70553; 71045; 74177; 74220; 80048; 80053; 82607; 82746; 83690; 83735; 84443; 85025; 88305; 88312; 93005; C9113; J1650; J2405; J2704; J3475; J3480; S0179; U0002

== ENCOUNTER 2021-12-18 12:47 | Emergency (ER) | payer MEDICARE ==
[2021-12-18 13:56] LABS: #Basophils 0.1 10x3/uL (0.0-0.2); #Eosinphils 0.2 10x3/uL (0.0-0.5); #Monocytes 0.7 10x3/uL (0.0-1.1); #Neutrophils 7.3 10x3/uL (1.5-8.4); %Basophils 0.5 % (0.0-2.0); %Eosinophils 2.3 % (0.0-6.0); %Lymphocytes 13.5 % (18.0-47.0); %Neutrophils 74.9 % (40.0-75.0); Hemoglobin 12.4 g/dL (12.0-15.5); Mean Corpuscular HGB CONC 31.9 g/dL (32.0-36.0); Mean Corpuscular Hemoglobin 30.8 pg (27.0-33.0); Mean Corpuscular Volume 96.5 fl (81.6-98.3); Mean Platelet Volume 10.1 fl (7.4-10.4); Platelet Count 197 10x3/uL (150-450); RBC Distribution Width 17.9 % (11.5-14.5); Red Blood Cell (RBC) Count 4.03 10x6/uL (3.90-5.03); White Blood Cell (WBC) Count 9.7 10x3/uL (3.5-10.5)
[2021-12-18 14:10] LABS: ALT (SGPT) 14 U/L (8-55); AST (SGOT) 14 U/L (5-34); Alkaline Phosphatase 52 U/L (40-110); Anion Gap 13 mmol/L (10-20); BUN (Urea Nitrogen) 27 mg/dL (9.8-20.1); Bilirubin, Total 0.5 mg/dL (0.2-1.2); Calc. Creatinine Clearance 0 mL/min (70-130); Calcium 8.8 mg/dL (7.8-10.44); Carbon Dioxide 23 mmol/L (23-31); Chloride 113 mmol/L (98-107); Globulin 2.2 g/dL (2.4-3.5); Glucose 85 mg/dL (83-110); Potassium 4.1 mmol/L (3.5-5.1); Protein, Total 6.2 g/dL (5.8-8.1); Sodium 145 mmol/L (136-145)
== END 2021-12-18 15:50 | disposition home or self-care (01) ==
LOC: CSHERS 12:47
DX: R05.9 Cough, unspecified (principal); I10 Essential (primary) hypertension; E78.5 Hyperlipidemia, unspecified; Z79.899 Other long term (current) drug therapy; Z79.82 Long term (current) use of aspirin
CPT/HCPCS: 71045; 80053; 85025; 86140; 93005; 94760